=== PATIENT | male | born 1995 | race Caucasian/White ===

== ENCOUNTER 2019-06-18 13:51 | Emergency (ER) | payer OTHER ==
[~2019-06-18] VITALS: Ht 175.3 cm; Wt 70.5 kg
--- NOTE | 2019-06-18 14:09 | NUR ---
PT AMBULATORY WITH STEADY GAIT TO ROOM NOW. CHANGING INTO GOWN.
--- NOTE | 2019-06-18 14:21 | NUR ---
PT HERE FOR PAIN IN RIGHT GROIN AFTER FEELING "POP" IN THAT AREA WHILE RIDING SKATEBOARD EARLIER TODAY. PT STATES PAIN IS WORSE WITH WALKING. CURRENTLY, WHILE RESTING, PAIN IS A 3/10. PT RESTING ON GURNEY. PROVIDED WITH BLANKET. VSS. SALAS. DENIES NEEDS.
--- NOTE | 2019-06-18 14:24 | NUR ---
MD AT BEDSIDE ASSESSING PT NOW.
--- NOTE | 2019-06-18 14:58 | NUR ---
PT IN US NOW.
--- NOTE | 2019-06-18 15:08 | NUR ---
PT BACK FROM US. RESTING ON [employer]. CONNECTED TO MONITOR.
[2019-06-18 15:11] VITALS: BP 126/85
--- NOTE | 2019-06-18 16:01 | NUR ---
PT AWARE OF DC PLAN. GETTING DRESSED NOW.
== END 2019-06-18 16:12 | disposition home or self-care (01) ==
LOC: ED 16:00
DX: S39.011A Strain of muscle, fascia and tendon of abdomen, initial encounter (principal); F17.200 Nicotine dependence, unspecified, uncomplicated; X58.XXXA Exposure to other specified factors, initial encounter; Y93.89 Activity, other specified; Y92.89 Other specified places as the place of occurrence of the external cause; Y99.8 Other external cause status
CPT/HCPCS: 76857; 99284